=== PATIENT | male | born 1975 | race Caucasian/White ===

== ENCOUNTER 2022-08-04 15:00 | Emergency (ER) | payer MEDICAID ==
[~2022-08-04] VITALS: Ht 172.7 cm; Wt 67.0 kg
[~2022-08-04 15:00] MED LIST: AMOX1TAB16 MT; SULF1TAB48 MT
[2022-08-04 19:06] VITALS: BP 152/99
[2022-08-04] MEDS ORDERED: SULF1TAB48 MT (20:06)
[2022-08-04] MEDS ORDERED: LEVO750T68 MT (20:06)
== END 2022-08-04 20:17 | disposition home or self-care (01) ==
LOC: ER 15:20
DX: L97.429 Non-pressure chronic ulcer of left heel and midfoot with unspecified severity (principal); Z88.0 Allergy status to penicillin
CPT/HCPCS: 99281